=== PATIENT | female | born 1985 | race Caucasian/White ===

== ENCOUNTER 2016-09-11 13:07 | Inpatient (IN) | payer OTHER ==
[~2016-09-11] VITALS: Ht 160 cm; Wt 80.5 kg
[2016-09-11] VITALS (9 sets, daily range): BP systolic 110–137; BP diastolic 61–79
[2016-09-11 14:13] LABS: HEMATOCRIT 34.4 % (36.0-46.0); MCH 30.4 PG (29.0-34.0); MCHC 34.6 G/DL (30.0-36.0); MCV 87.8 FL (83-99); MEAN PLAT.VOLUME 12.2 uM^3 (9.5-12.4); PLATELET COUNT 193 K/uL (156-360); RBC DIS.WIDTH-SD 43.9 % (39-53); RED BLOOD COUNT 3.92 M/uL (3.80-5.20); WHITE BLOOD COUNT 9.4 K/uL (4.1-10.2)
[2016-09-11 14:21] LABS: EOSINOPHIL COUNT 0.2 K/uL (0-0.3); IMMATURE GRANULOCYTE (%) 0.2 % (0.0-0.7); LYMPHOCYTE COUNT 2.1 K/uL (1.0-2.8); MONOCYTE (%) 4.6 % (3-12); MONOCYTE COUNT 0.4 K/uL (0-0.8); NEUTROPHIL (%) 70.7 % (45-76); NEUTROPHIL COUNT 6.7 K/uL (1.8-6.4)
[2016-09-11] MEDS ORDERED: BUPRENORPHINE HC8 MG SL (16:56)
[2016-09-11 17:57] LABS: AMPHETAMINES QUANT VALUE 0 NG/ML; BARBITUATES QUANT VALUE 0 NG/ML; BENZODIAZEPINES QUANT VALUE 0 NG/ML; BENZODIAZEPINES, URINE SCREEN Negative (200 ng/mL); MARIJUANA QUANT VALUE 0 NG/ML; OPIATES QUANTITATIVE VALUE 0 NG/ML; PHENCYCLIDINE QUANT VALUE 0 NG/ML
[2016-09-12] VITALS (25 sets, daily range): BP systolic 103–136; BP diastolic 58–89
[2016-09-13 06:40] LABS: EOSINOPHIL (%) 2.4 % (0-5); EOSINOPHIL COUNT 0.3 K/uL (0-0.3); HEMATOCRIT 29.2 % (36.0-46.0); IMMATURE GRANULOCYTE (%) 0.3 % (0.0-0.7); LYMPHOCYTE COUNT 2.7 K/uL (1.0-2.8); MCHC 33.2 G/DL (30.0-36.0); MCV 87.4 FL (83-99); MONOCYTE (%) 4.2 % (3-12); MONOCYTE COUNT 0.5 K/uL (0-0.8); NEUTROPHIL (%) 67.8 % (45-76); NEUTROPHIL COUNT 7.4 K/uL (1.8-6.4); PLATELET COUNT 166 K/uL (156-360); RBC DIS.WIDTH-SD 44.4 % (39-53); RED BLOOD COUNT 3.34 M/uL (3.80-5.20); WHITE BLOOD COUNT 10.9 K/uL (4.1-10.2)
[2016-09-13 07:50] VITALS: BP 117/67
[2016-09-13 13:40] VITALS: BP 121/57
[2016-09-13 22:49] VITALS: BP 134/67
[2016-09-14 07:21] VITALS: BP 106/65
[2016-09-14 15:22] VITALS: BP 114/75
== END 2016-09-14 17:40 | disposition home or self-care (01) | DRG 775 ==
LOC: LDRP-OP → 2WEST 13:08 → LDRP-OP 11-08 22:22
PROVIDERS: Advanced Practice Midwife; Obstetrics & Gynecology
DX: O70.0 First degree perineal laceration during delivery (principal); O99.324 Drug use complicating childbirth; F11.90 Opioid use, unspecified, uncomplicated; O99.03 Anemia complicating the puerperium; D62 Acute posthemorrhagic anemia; O48.0 Post-term pregnancy; E66.9 Obesity, unspecified; O99.214 Obesity complicating childbirth; Z68.27 Body mass index [BMI] 27.0-27.9, adult; O99.334 Smoking (tobacco) complicating childbirth; F17.210 Nicotine dependence, cigarettes, uncomplicated; Z37.0 Single live birth; Z3A.40 40 weeks gestation of pregnancy
CPT/HCPCS: 85025; C1755; G0378; J0571; J3010; J7120; Q0169

== ENCOUNTER 2017-11-22 12:53 | Inpatient (IN) | payer OTHER ==
[~2017-11-22] VITALS: Ht 160 cm; Wt 91.1 kg
[2017-11-22] VITALS (19 sets, daily range): BP systolic 106–140; BP diastolic 56–97
[~2017-11-22 12:53] MED LIST: BUPRENORPHINE HC8 MG SL
[2017-11-22] MEDS ORDERED: ZANTAC150 MG PO (13:54)
[2017-11-22] MEDS ORDERED: SUBOXONE 8 MG-1 EAC2 PO (13:54)
[2017-11-22 14:22] LABS: BASOPHIL (%) 0.7 % (0-1); BASOPHIL COUNT 0.1 K/uL (0-0.1); EOSINOPHIL (%) 0.9 % (0-5); EOSINOPHIL COUNT 0.1 K/uL (0-0.3); HEMATOCRIT 30.7 % (36.0-46.0); HEMOGLOBIN 10.3 G/DL (11.9-15.5); IMMATURE GRANULOCYTE (%) 0.3 % (0.0-0.7); LYMPHOCYTE (%) 18.1 % (15-42); LYMPHOCYTE COUNT 1.6 K/uL (1.0-2.8); MCH 28.5 PG (29.0-34.0); MCHC 33.6 G/DL (30.0-36.0); MCV 84.8 FL (83-99); MONOCYTE COUNT 0.4 K/uL (0-0.8); NEUTROPHIL COUNT 6.9 K/uL (1.8-6.4); PLATELET COUNT 141 K/uL (156-360); RBC DIS.WIDTH-CV 12.6 % (11.8-14.6); RBC DIS.WIDTH-SD 38.4 % (39-53); RED BLOOD COUNT 3.62 M/uL (3.80-5.20); WHITE BLOOD COUNT 9.1 K/uL (4.1-10.2)
[2017-11-22 16:20] LABS: AMPHETAMINE NEGATIVE (500 ng/mL); BARBITURATES NEGATIVE (200 ng/mL); BENZODIAZEPINES NEGATIVE (150 ng/mL); BUPRENORPHINE PRESUMPTIVE POSITIVE (10 ng/mL); COCAINE NEGATIVE (150 ng/mL); METHADONE NEGATIVE (200 ng/mL); METHAMPHETAMINE NEGATIVE (500 ng/mL); OPIATES (MORPHINE) PRESUMPTIVE POSITIVE (100 ng/mL); OXYCODONE NEGATIVE (100 ng/mL); PHENCYCLIDINE NEGATIVE (25 ng/mL); PROPOXYPHENE NEGATIVE (300 ng/mL); THC CANNABINOIDS NEGATIVE (50 ng/mL); TRICYCLIC ANTIDEPRESSANTS NEGATIVE (300 ng/mL)
[2017-11-22] MEDS ORDERED: IBUPROFEN800 MG PO (23:23)
[2017-11-23 00:56] VITALS: BP 107/75
[2017-11-23 02:01] VITALS: BP 128/64
[2017-11-23 06:30] LABS: BASOPHIL (%) 0.3 % (0-1); EOSINOPHIL (%) 0.7 % (0-5); EOSINOPHIL COUNT 0.1 K/uL (0-0.3); HEMOGLOBIN 7.8 G/DL (11.9-15.5); IMMATURE GRANULOCYTE (%) 0.3 % (0.0-0.7); LYMPHOCYTE (%) 18.9 % (15-42); MCHC 32.5 G/DL (30.0-36.0); MONOCYTE (%) 4.7 % (3-12); MONOCYTE COUNT 0.5 K/uL (0-0.8); NEUTROPHIL (%) 75.1 % (45-76); NEUTROPHIL COUNT 7.8 K/uL (1.8-6.4); PLATELET COUNT 105 K/uL (156-360); RBC DIS.WIDTH-CV 12.5 % (11.8-14.6); RBC DIS.WIDTH-SD 39.2 % (39-53); RED BLOOD COUNT 2.79 M/uL (3.80-5.20); WHITE BLOOD COUNT 10.3 K/uL (4.1-10.2)
[2017-11-23 07:11] VITALS: BP 136/86
[2017-11-23 14:26] VITALS: BP 125/88
[2017-11-23 22:47] VITALS: BP 126/82
[2017-11-24 07:21] VITALS: BP 120/69
[2017-11-24] MEDS ORDERED: FERROUS SULFAT325 MG PO (10:51)
[2017-11-24] MEDS ORDERED: PRENATAL VITAM1 EA11 PO (10:51)
[2017-11-24 14:31] VITALS: BP 117/63
== END 2017-11-24 17:09 | disposition home or self-care (01) | DRG 775 ==
LOC: LDRP-OP 12:53 → 2WEST 12:55
PROVIDERS: Advanced Practice Midwife
PROC: 10E0XZZ Delivery of Products of Conception, External Approach (ICD-10-PCS; principal; 2017-11-22)
PROC: 10907ZC Drainage of Amniotic Fluid, Therapeutic from Products of Conception, Via Natural or Artificial Opening (ICD-10-PCS; 2017-11-22)
PROC: 3E0R3BZ Introduction of Anesthetic Agent into Spinal Canal, Percutaneous Approach (ICD-10-PCS; 2017-11-22)
PROC: 00HU33Z Insertion of Infusion Device into Spinal Canal, Percutaneous Approach (ICD-10-PCS; 2017-11-22)
DX: O99.02 Anemia complicating childbirth (principal); D62 Acute posthemorrhagic anemia; O99.62 Diseases of the digestive system complicating childbirth; K21.9 Gastro-esophageal reflux disease without esophagitis; O99.324 Drug use complicating childbirth; F11.90 Opioid use, unspecified, uncomplicated; O75.89 Other specified complications of labor and delivery; G89.29 Other chronic pain; M54.9 Dorsalgia, unspecified; M79.606 Pain in leg, unspecified; O99.334 Smoking (tobacco) complicating childbirth; F17.200 Nicotine dependence, unspecified, uncomplicated; Z3A.40 40 weeks gestation of pregnancy; Z37.0 Single live birth; Z90.721 Acquired absence of ovaries, unilateral
CPT/HCPCS: 84999; 85025; C1755; J0571; J2795; J7120